=== PATIENT | female | born 2000 | race Caucasian/White ===

== ENCOUNTER 2021-07-13 17:35 | Emergency (ER) | payer OTHER ==
--- NOTE | 2021-07-13 20:01 | EDM.PDOC ---
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 Reports that starting this morning, she has been saturating a tampon an hour on a number of occasions. Reports that her last menstrual period ended on 03 July. She did have intercourse on the fourth but is on Nexplanon control. Reports spasming discomfort in her low back and pelvic area. Denies history of dysfunctional uterine bleeding. Reports that she had the Covid vaccine on 03 July and had a heavy bloody nose that evening, however she does report that she has had numerous bloody noses in the past but this one seemed heavier. Denies any dizziness. Reports that bleeding has improved from earlier today. Lower Abdomen Pain Score (Numeric/FACES): 6 - Related Data Allergies Allergy/AdvReac Type Severity Reaction Status Date / Time shellfish derived Allergy Severe Swelling Verified 07/13/21 18:07 Home Meds: Home Meds Ferrous Sulfate [Iron] 0 mg PO DAILY 07/13/21 [History] Fish Oil/[place]-3 Fatty Acids [Fish Oil 1,000 MG] 0 mg PO DAILY 07/13/21 [History] Past Medical History - Past Surgical History HEENT Surgical History: Reports: Tonsillectomy Social & Family History - Tobacco Use Tobacco Use Status *Q: Current Every Day Tobacco User Years of Tobacco use: 5 Packs/Tins Daily: 1 - Caffeine Use Caffeine Use: Reports: None - Recreational Drug Use Recreational Drug Use: No ED ROS GENERAL - Review of Systems Review Of Systems: See Below Constitutional: Reports: No Symptoms HEENT: Reports: No Symptoms Respiratory: Reports: No Symptoms Cardiovascular: Reports: No Symptoms Endocrine: Reports: No Symptoms GI/Abdominal: Reports: No Symptoms : Reports: Irregular Menses, Pain (Intermittent pelvic) Musculoskeletal: Reports: Back Pain Skin: Reports: No Symptoms Neurological: Reports: No Symptoms Psychiatric: Reports: No Symptoms Hematologic/Lymphatic: Reports: No Symptoms Immunologic: Reports: No Symptoms ED EXAM, RENAL/ - Physical Exam Exam: See Below Exam Limited By: No Limitations General Appearance: Alert, WD/WN, No Apparent Distress Respiratory/Chest: No Respiratory Distress, Lungs Clear, Normal Breath Sounds, No Accessory Muscle Use, Chest Non-Tender Cardiovascular: Normal Peripheral Pulses, Regular Rate, Rhythm, No Edema, No Gallop, No JVD, No Murmur, No Rub GI/Abdominal: Normal Bowel Sounds, Soft, Non-Tender, No Organomegaly, No Distention, No Abnormal Bruit, No Mass, Other (Mild suprapubic tenderness) Back Exam: Normal Inspection, Full Range of Motion. No: CVA Tenderness (L), CVA Tenderness (R) Neurological: Alert, Oriented, CN II-XII Intact, Normal Cognition, Normal Gait, Normal Reflexes, No Motor/Sensory Deficits Psychiatric: Normal Affect, Normal Mood Skin Exam: Warm, Dry, Intact, Normal Color, No Rash Course - Vital Signs Last Recorded V/S: Last Vital Signs Temp 97.9 F 07/13/21 18:03 Pulse 72 07/13/21 18:03 Resp 16 07/13/21 18:03 BP 116/71 07/13/21 18:03 Pulse Ox 100 07/13/21 18:03 - Orders/Labs/Meds Labs: Laboratory Tests 07/13/21 07/13/21 07/13/21 Range/Units 18:25 18:25 18:25 WBC 9.91 (3.98-10.04) K/mm3 RBC 4.51 (3.98-5.22) M/mm3 Hgb 13.6 (11.2-15.7) gm/dl Hct 40.0 (34.1-44.9) % MCV 88.7 (79.4-94.8) fl MCH 30.2 (25.6-32.2) pg MCHC 34.0 (32.2-35.5) g/dl RDW Std Deviation 41.6 (36.4-46.3) fL Plt Count 311 (182-369) K/mm3 MPV 10.0 (9.4-12.3) fl Neut % (Auto) 61.7 (34.0-71.1) % Lymph % (Auto) 29.6 (19.3-51.7) % [place] % (Auto) 7.0 (4.7-12.5) % Eos % (Auto) 1.2 (0.7-5.8) Baso % (Auto) 0.3 (0.1-1.2) % Neut # (Auto) 6.12 (1.56-6.13) K/mm3 Lymph # (Auto) 2.93 (1.18-3.74) K/mm3 Willacy # (Auto) 0.69 H (0.24-0.36) K/mm3 Eos # (Auto) 0.12 (0.04-0.36) K/mm3 Baso # (Auto) 0.03 (0.01-0.08) K/mm3 PT (9.7-12.0) SECONDS INR Sodium 141 (136-145) mEq/L Potassium 3.5 (3.5-5.1) mEq/L Chloride 105 (98-107) mEq/L Carbon Dioxide 26 (21-32) mEq/L Anion Gap 13.5 (5-15) BUN 13 (7-18) mg/dL Creatinine 0.8 (0.55-1.02) mg/dL Est Cr Clr Drug Dosing TNP Estimated GFR (MDRD) > 60 (>60) mL/min BUN/Creatinine Ratio 16.3 (14-18) Glucose 81 (70-99) mg/dL Calcium 8.3 L (8.5-10.1) mg/dL Total Bilirubin 0.2 (0.2-1.0) mg/dL AST 22 (15-37) U/L ALT 25 (14-59) U/L Alkaline Phosphatase 61 (46-116) U/L Total Protein 7.2 (6.4-8.2) g/dl Albumin 4.1 (3.4-5.0) g/dl Globulin 3.1 gm/dL Albumin/Globulin Ratio 1.3 (1-2) HCG, Qual Negative (NEGATIVE) Urine Color (Yellow) Urine Appearance (Clear) Urine pH (5.0-8.0) Ur Specific Gabbs (1.005-1.030) Urine Protein (Negative) Urine Glucose (UA) (Negative) Urine Ketones (Negative) Urine Occult Blood (Negative) Urine Nitrite (Negative) Urine Bilirubin (Negative) Urine Urobilinogen (0.2-1.0) Ur Leukocyte Esterase (Negative) Urine RBC (0-5) /hpf Urine WBC (0-5) /hpf Ur Squamous Epith Cells (0-5) /hpf Urine Bacteria (FEW) /hpf Urine Mucus (FEW) /hpf 07/13/21 07/13/21 Range/Units 18:25 20:23 WBC (3.98-10.04) K/mm3 RBC (3.98-5.22) M/mm3 Hgb (11.2-15.7) gm/dl Hct (34.1-44.9) % MCV (79.4-94.8) fl MCH (25.6-32.2) pg MCHC (32.2-35.5) g/dl RDW Std Deviation (36.4-46.3) fL Plt Count (182-369) K/mm3 MPV (9.4-12.3) fl Neut % (Auto) (34.0-71.1) % Lymph % (Auto) (19.3-51.7) % [place] % (Auto) (4.7-12.5) % Eos % (Auto) (0.7-5.8) Baso % (Auto) (0.1-1.2) % Neut # (Auto) (1.56-6.13) K/mm3 Lymph # (Auto) (1.18-3.74) K/mm3 [place] # (Auto) (0.24-0.36) K/mm3 Eos # (Auto) (0.04-0.36) K/mm3 Baso # (Auto) (0.01-0.08) K/mm3 PT 11.2 (9.7-12.0) SECONDS INR 1.01 Sodium (136-145) mEq/L Potassium (3.5-5.1) mEq/L Chloride (98-107) mEq/L Carbon Dioxide (21-32) mEq/L Anion Gap (5-15) BUN (7-18) mg/dL Creatinine (0.55-1.02) mg/dL Est Cr Clr Drug Dosing Estimated GFR (MDRD) (>60) mL/min BUN/Creatinine Ratio (14-18) Glucose (70-99) mg/dL Calcium (8.5-10.1) mg/dL Total Bilirubin (0.2-1.0) mg/dL AST (15-37) U/L ALT (14-59) U/L Alkaline Phosphatase (46-116) U/L Total Protein (6.4-8.2) g/dl Albumin (3.4-5.0) g/dl Globulin gm/dL Albumin/Globulin Ratio (1-2) HCG, Qual (NEGATIVE) Urine Color Yellow (Yellow) Urine Appearance Clear (Clear) Urine pH 7.0 (5.0-8.0) Ur Specific Gabbs 1.015 (1.005-1.030) Urine Protein Negative (Negative) Urine Glucose (UA) Negative (Negative) Urine Ketones Trace H (Negative) Urine Occult Blood 3+ H (Negative) Urine Nitrite Negative (Negative) Urine Bilirubin Negative (Negative) Urine Urobilinogen 0.2 (0.2-1.0) Ur Leukocyte Esterase Negative (Negative) Urine RBC 50-75 H (0-5) /hpf Urine WBC 0-5 (0-5) /hpf Ur Squamous Epith Cells 0-5 (0-5) /hpf Urine Bacteria Few (FEW) /hpf Urine Mucus Few (FEW) /hpf - Re-Assessments/Exams Free Text/Narrative Re-Assessment/Exam: Patient is a 20-year-old female presenting to the emergency department with complaints of heavy vaginal bleeding that began earlier today. Reports it has improved in severity at this time. She just finished her menstrual period on 03 July, so this is abnormal for her. Also reports intermittent spasming pain in her low back and pelvic area. Blood work was completed per standing order in triage and found to be normal. test was negative. I have added on PT/INR and urinalysis. 07/13/21 20:45 PT/INR is normal. Urinalysis shows blood likely related to menses but no evidence of infection. Recommend patient change to pads to monitor her flow. If she is saturating a pad an hour for 2 or more hours, she should return to ER. 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 Discharge instructions as documented. Departure - Departure Time of Disposition: 20:46 Disposition: Home, Self-Care 01 Condition: Good Clinical Impression: Dysfunctional uterine bleeding - Discharge Information *PRESCRIPTION DRUG MONITORING PROGRAM REVIEWED*: No *COPY OF PRESCRIPTION DRUG MONITORING REPORT IN PATIENT JANIYA: No Instructions: Abnormal Uterine Bleeding Referrals: Delmi Tamayo MD [Primary Care Provider] - Philly Howell MD [Physician] - Forms: ED Department Discharge Additional Instructions: You were seen in the emergency department today for abnormal vaginal bleeding. Blood work, test, and urinalysis were completed and found to be normal. I would recommend that you change from tampons to regular sized pads. If you are saturating a pad an hour for 2 or more hours, you should return to the emergency department. 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 Nguyen, tomorrow morning to let her know of today's occurrences. Return to ER for any new or worsening symptoms. Sepsis Event Note (ED) - Evaluation Sepsis Screening Result: No Definite Risk - Focused Exam Vital Signs: Vital Signs Temp Pulse Resp BP Pulse Ox 07/13/21 18:03 97.9 F 72 16 116/71 100
== END 2021-07-13 20:55 | disposition home or self-care (01) ==
LOC: JD.ED 17:35
DX: N93.8 Other specified abnormal uterine and vaginal bleeding (principal); Z91.013 Allergy to seafood; Z72.0 Tobacco use
CPT/HCPCS: 36415; 80053; 81001; 84703; 85025; 85610; 99283; 99284

== ENCOUNTER 2023-10-13 01:15 | Emergency (ER) | payer OTHER ==
[2023-10-13] MEDS ORDERED: Ondansetron 4 MG/2 ML SDV IVPUSH ONE ×2 (01:37→02:32)
[2023-10-13] MEDS ORDERED: Dicyclomine 20 MG/2 ML SDV IM ONE ×2 (01:40→04:08)
[2023-10-13] MEDS ORDERED: Sodium Chloride 0.9% 1,000 ML IV ONE ×2 (01:46→03:22)
[2023-10-13 01:48] LABS: BASOPHILS ABSOLUTE AUTO 0.1 K/mm3 (0.0-0.2); BASOPHILS PERCENT AUTO 0.2 % (0.0-1.0); EOSINOPHILS ABSOLUTE AUTO 0.2 K/mm3 (0.0-0.4); EOSINOPHILS PERCENT AUTO 0.8 % (0.0-6.0); HEMATOCRIT 47.4 % (37.0-47.0); HEMOGLOBIN 16.6 gm/dl (12.0-16.0); IMMATURE GRAN PERCENT AUTO 0.4 % (0.0-0.4); LYMPHOCYTES ABSOLUTE AUTO 1.8 K/mm3 (1.0-4.8); LYMPHOCYTES PERCENT AUTO 7.4 % (24.0-44.0); MEAN CORPUSCULAR HEMOGLOBIN 30.3 pg (28.0-32.0); MEAN CORPUSCULAR VOLUME 86.5 fl (83.0-99.0); MEAN PLATELET VOLUME 9.8 fl (9.4-12.3); MONOCYTES ABSOLUTE AUTO 1.2 K/mm3 (0.0-0.8); MONOCYTES PERCENT AUTO 4.7 % (0.0-8.0); NEUTROPHILS ABSOLUTE AUTO 21.1 K/mm3 (1.8-7.7); NEUTROPHILS PERCENT AUTO 86.5 % (41.0-71.0); PLATELET COUNT,PLT 329 K/mm3 (150-400); RED BLOOD CELL COUNT 5.48 M/mm3 (4.10-5.30); WHITE BLOOD CELL COUNT,WBC 24.45 K/mm3 (3.9-11.3)
[2023-10-13] MEDS: Sodium Chloride 0.9% 10 ML Syringe FLUSH PRN ×3 (01:49→04:50)
[2023-10-13 02:16] LABS: CORONAVIRUS COVID-19 NAA NEGATIVE (NEGATIVE); INFLUENZA A NAA NEGATIVE (NEGATIVE); RESPIRATORY SYNCYTIAL VIR NAA NEGATIVE (NEGATIVE)
[2023-10-13] MEDS ORDERED: Ondansetron 4 MG/2 ML SDV ONE (02:27)
[2023-10-13 02:40] LABS: A/G RATIO 1.3 (1-2); ALBUMIN 4.8 g/dl (3.4-5.0); ANION GAP 18.8 (5-15); BILIRUBIN TOTAL 0.5 mg/dL (0.2-1.0); CALCIUM 9.6 mg/dL (8.5-10.1); EST CRCL DRUG DOSING (CG) 71.76 mL/min; MAGNESIUM 1.7 mg/dL (1.8-2.4); POTASSIUM,K 3.8 mEq/L (3.5-5.1); PROTEIN TOTAL,TP 8.5 g/dl (6.4-8.2)
[2023-10-13 03:03] LABS: SLIDE REVIEW ABNORMAL SMEAR
[2023-10-13] MEDS ORDERED: Prochlorperazine 10 MG/2 ML SDV IVPUSH ONE (04:09)
[2023-10-13] MEDS ORDERED: diphenhydrAMINE 50 MG/ML SDV IVPUSH ONE (04:35)
[2023-10-13] MEDS ORDERED: methylPREDNISolone Sodium Succinate 125 MG/2 ML SDV IVPUSH ONE (04:35)
[2023-10-13] MEDS ORDERED: Iopamidol 612 MG/ML 100 ML Bottle IVPUSH ONE (04:42)
== END 2023-10-13 06:54 | disposition home or self-care (01) ==
LOC: JD.ED 01:15
DX: A08.4 Viral intestinal infection, unspecified (principal); F17.210 Nicotine dependence, cigarettes, uncomplicated; Z20.822 Contact with and (suspected) exposure to COVID-19; Z91.013 Allergy to seafood
CPT/HCPCS: 0241U; 36415; 74177; 80053; 83735; 84703; 85025; 96361; 96372; 96374; 96375; 96376; 99284; J0500; J0780; J1200; J2405; J2930; J3490; J7030